=== PATIENT | female | born 1990 ===

== ENCOUNTER 2018-02-10 08:46 | Emergency (ER) | payer MEDICAID ==
[2018-02-10 09:09] VITALS: RESP 18
[2018-02-10 11:19] LABS: BASO % 0.3 % (0.0-2.0); EOS # 0.3 K/uL (0.0-0.7); EOS % 4.1 % (0.0-4.0); HEMOGLOBIN 13.2 g/dL (12.0-16.0); LYMPH # 2.6 K/uL (1.0-4.3); LYMPH % 32.1 % (20.0-40.0); MEAN CELL VOLUME 91.9 fl (81.0-99.0); MEAN CORPUSCULAR HGB CONC 34.9 g/dL (33.0-37.0); MEAN PLATELET VOLUME 7.7 fl (7.2-11.7); MONO # 0.6 K/uL (0.0-0.8); MONO % 7.7 % (0.0-10.0); NEUT # 4.5 K/uL (1.8-7.0); NEUT % 55.8 % (50.0-75.0); RBC 4.13 Mil/uL (3.80-5.20); RED CELL DISTRIBUTION WIDTH 12.3 % (11.5-14.5)
--- NOTE | 2018-02-10 11:19 | US ---
Date of service: 02/10/2018 HISTORY: epigastric pain COMPARISON: None. TECHNIQUE: Grayscale imaging was performed. FINDINGS: LIVER: Measures 15.7 cm in length. Normal echogenicity of the liver parenchyma. No mass. No intrahepatic bile duct dilatation. GALLBLADDER: There are no gallstones, wall thickening or pericholecystic fluid. The sonographic Barrett's sign is negative. COMMON BILE DUCT: Measures 4.3 mm. No stones. No dilatation. PANCREAS: Normal in size and echotexture. No mass. No ductal dilatation. RIGHT KIDNEY: Measures 11.0 cm in length. Normal echogenicity. No calculus, mass, or hydronephrosis. AORTA: No aneurysmal dilatation. IVC: Unremarkable. OTHER FINDINGS: None . IMPRESSION: Normal examination.
--- NOTE | 2018-02-10 11:22 | US ---
Date of service: 02/10/2018 PROCEDURE: OB Pelvic Ultrasound HISTORY: Abdominal pain COMPARISON: None available. FINDINGS: UTERUS: Single Live intrauterine gestation. Gestational sac diameter measures 3.5 cm to 8 weeks and 5 days of gestational age. CRL measures 0.56 cm equivalent to 8 weeks and 3 days of gestational age. age (Ultrasound estimated): 8 weeks and 4 days Date of delivery (Ultrasound estimated) : 09/18/2018 Heart rate: 168 bpm. Caitlin-gestational hemorrhage: None. Uterus measures 8.9 x 6.9 x 6.7 cm. Anteverted and bulky. CERVIX: Long and closed. No cervical abnormality seen. RIGHT OVARY: Surgically absent. LEFT OVARY: Not visualized. FREE FLUID: None. OTHER FINDINGS: None. IMPRESSION: Single live intrauterine gestation with mean gestational age of 8 weeks and 4 days. The estimated date of delivery by ultrasound is 09/18/2018. There is discrepancy between the clinical dates and ultrasound dates by approximately 8 weeks. Clinical follow-up is advised.
[2018-02-10 11:30] LABS: ALB/GLOB RATIO 1.2 (1.0-2.1); ALBUMIN 4.4 g/dL (3.5-5.0); ALT/SGPT 37 U/L (9-52); AST/SGOT 31 U/L (14-36); BLOOD UREA NITROGEN 10 mg/dl (7-17); CALCIUM 9.3 mg/dL (8.4-10.2); GFR NON-AFRICAN AMERICAN > 60
[2018-02-10 13:39] VITALS: BP 110/66; PULSE 74; TEMP 96.6; O2SAT 98
--- NOTE | 2018-02-10 14:56 | ED PDOC ---
HPI: Abdomen Time Seen by Provider: 02/10/18 09:29 Chief Complaint (Nursing): Abdominal Pain Chief Complaint (Provider): Abdominal Pain History Per: Patient History/Exam Limitations: no limitations Onset/Duration Of Symptoms: Days (x1 week) Current Symptoms Are (Timing): Still Present Additional Complaint(s): 27 year old female presenting for evaluation of abdominal pain onset this morning. Patient reports pain is constant and non radiating. Patient denies any current vomiting, but states she has been vomiting intermittently throughout her . Patient denies any diarrhea, fevers, or urinary complaints. Patient reports a normal US last week. 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[place] Past Medical History Reviewed: Historical Data, Nursing Documentation, Vital Signs Vital Signs: Last Vital Signs Temp 96.6 F L 02/10/18 13:36 Pulse 74 02/10/18 13:36 Resp 18 02/10/18 13:36 BP 110/66 02/10/18 13:36 Pulse Ox 98 02/10/18 13:36 - Medical History PMH: No Chronic Diseases - Surgical History Other surgeries: 1 ovarian removal - Family History Family History: States: Unknown Family Hx - Allergies Allergies/Adverse Reactions: Allergies Allergy/AdvReac Type Severity Reaction Status Date / Time No Known Allergies Allergy Verified 02/10/18 08:57 Review of Systems ROS Statement: Except As Marked, All Systems Reviewed And Found Negative Constitutional: Negative for: Fever, Chills Cardiovascular: Negative for: Chest Pain Respiratory: Negative for: Shortness of Breath Gastrointestinal: Positive for: Abdominal Pain. Negative for: Nausea, Vomiting, Diarrhea Genitourinary Female: Negative for: Dysuria, Frequency, Incontinence, Hematuria Physical Exam - Reviewed Nursing Documentation Reviewed: Yes Vital Signs Reviewed: Yes - Physical Exam Appears: Positive for: Non-toxic, No Acute Distress Head Exam: Positive for: ATRAUMATIC, NORMAL INSPECTION, NORMOCEPHALIC Skin: Positive for: Normal Color, Warm, Dry. Negative for: Rash Eye Exam: Positive for: EOMI, Normal appearance, PERRL ENT: Positive for: Normal ENT Inspection Neck: Positive for: Normal, Painless ROM, Supple Cardiovascular/Chest: Positive for: Regular Rate, Rhythm. Negative for: Murmur Respiratory: Positive for: Normal Breath Sounds. Negative for: Respiratory Distress Gastrointestinal/Abdominal: Positive for: Soft, Tenderness (mild epigastric tenderness, periumbilical tenderness) Back: Positive for: Normal Inspection. Negative for: L CVA Tenderness, R CVA Tenderness, Vertebral Tenderness Extremity: Positive for: Normal ROM. Negative for: Pedal Edema, Deformity Neurologic/Psych: Positive for: Alert, Oriented. Negative for: Motor/Sensory Deficits - Laboratory Results Result Diagrams: 02/10/18 11:04 02/10/18 11:04 - ECG O2 Sat by Pulse Oximetry: 98 (RA) Pulse Ox Interpretation: Normal Medical Decision Making Medical Decision Makin Impression: Abdominal pain. Differential diagnoses include, but are not limited to complications of such as ectopic or threatened . Plan: - serum -CMP -Udip -CBC -US Gallbladder -US OB Transvaginal -Reevaluation 1115 ABDOMINAL US FINDINGS: LIVER: Measures 15.7 cm in length. Normal echogenicity of the liver parenchyma. No mass. No intrahepatic bile duct dilatation. GALLBLADDER: There are no gallstones, wall thickening or pericholecystic fluid. The sonographic Barrett's sign is negative. COMMON BILE DUCT: Measures 4.3 mm. No stones. No dilatation. PANCREAS: Normal in size and echotexture. No mass. No ductal dilatation. RIGHT KIDNEY: Measures 11.0 cm in length. Normal echogenicity. No calculus, mass, or hydronephrosis. AORTA: No aneurysmal dilatation. IVC: Unremarkable. OTHER FINDINGS: None . IMPRESSION: Normal examination. TRANSVAGINAL US FINDINGS: UTERUS: Single Live intrauterine gestation. Gestational sac diameter measures 3.5 cm to 8 weeks and 5 days of gestational age. CRL measures 0.56 cm equivalent to 8 weeks and 3 days of gestational age. age (Ultrasound estimated): 8 weeks and 4 days Date of delivery (Ultrasound estimated) : 09/18/2018 Heart rate: 168 bpm. Caitlin-gestational hemorrhage: None. Uterus measures 8.9 x 6.9 x 6.7 cm. Anteverted and bulky. CERVIX: Long and closed. No cervical abnormality seen. RIGHT OVARY: Surgically absent. LEFT OVARY: Not visualized. FREE FLUID: None. OTHER FINDINGS: None. IMPRESSION: Single live intrauterine gestation with mean gestational age of 8 weeks and 4 days. The estimated date of delivery by ultrasound is 09/18/2018. There is discrepancy between the clinical dates and ultrasound dates by approximately 8 weeks. Clinical follow-up is advised. 1340 Diagnostics reviewed and findings discussed with patient who agrees with plan for discharge. Patient is stable for discharged home. Advised to follow up with OGBYN for further evaluation. Scribe Attestation: Documented by Darryl To, acting as a scribe for Jose Eduardo Rogers MD. Provider Scribe Attestation: All medical record entries made by the Scribe were at my direction and personally dictated by me. I have reviewed the chart and agree that the record accurately reflects my personal performance of the history, physical exam, medical decision making, and the department course for this patient. I have also personally directed, reviewed, and agree with the discharge instructions and disposition. Disposition - Clinical Impression Clinical Impression: Threatened , Abdominal pain during - Patient ED Disposition Is Patient to be Admitted: No Counseled Patient/Family Regarding: Studies Performed, Diagnosis, Need For Followup - Disposition Referrals: [facility] [Outside] Disposition: Routine/Home Disposition Time: 13:40 Condition: GOOD Additional Instructions: ARIANA GUERRERO, thank you for letting us take care of you today. Your provider was Jose Eduardo Rogers MD and you were treated for 8WKS PREG;ABD PAIN. The emergency medical care you received today was directed at your acute symptoms. If you were prescribed any medication, please fill it and take as directed. It may take several days for your symptoms to resolve. Return to the Emergency Department if your symptoms worsen, do not improve, or if you have any other problems. Please contact your doctor or call one of the physicians/clinics you have been referred to that are listed on the Patient Visit Information form that is included in your discharge packet. Bring any paperwork you were given at discharge with you along with any medications you are taking to your follow up visit. Our treatment cannot replace ongoing medical care by a primary care provider outside of the emergency department. Thank you for allowing the [facility] team to be part of your care today. If you had an X-Ray or CT scan: A Radiologist will review the ED reading if any change in treatment is needed we will contact you. If you had a blood, urine, or wound culture: It will take several days for the results, if any change in treatment is needed we will contact you. If you had an STI test: It will take 48 hours for the results. Please call after 1 week if you have not heard back. Instructions: Threatened Miscarriage Forms: [employer] (Congolese)
== END 2018-02-10 13:40 | disposition home or self-care (01) ==
LOC: H.ER 08:46 → SUPCPDRO 08:46 → H.ER 13:40
DX: O20.0 Threatened abortion (principal); O26.891 Other specified pregnancy related conditions, first trimester; Z3A.08 8 weeks gestation of pregnancy